=== PATIENT | female | born 1945 ===

== ENCOUNTER 2024-02-16 05:10 | Day surgery (SDC) | payer OTHER ==
[~2024-02-16] VITALS: Ht 165.1 cm; Wt 74.4 kg
[~2024-02-16 05:10] MED LIST: ADULT LOW DOSE81 M1; AMLODIPINE-OLM1 EAC2; ATORVASTATIN CA20 MG; CALTRATE 600+D1 EAC1; COZAAR100 MG; FOLIC ACID0.8 M1; LANTUS SOL100 UNIT/1; SYNJARDY 12.5-1 EACH
[2024-02-16] MEDS ORDERED: VANCOMYCIN HCL 1,000 MG VIAL IV SCH (06:00)
[2024-02-16] MEDS ORDERED: BUPIVACAINE HCL/PF 0.5% 30ML ML ONE ×2 (07:26→08:35)
[2024-02-16] MEDS ORDERED: LIDOCAINE HCL 1%/Epi 20ML VIAL IJ ONE ×3 (07:26→08:35)
[2024-02-16] MEDS ORDERED: VANCOMYCIN HCL 1,000 MG VIAL ONE (07:26)
[2024-02-16] MEDS ORDERED: HEPARIN SODIUM,PORCINE 500 UNITS/5 ML VIAL IV ONE (07:26)
[2024-02-16] MEDS ORDERED: POVIDONE-IODINE 118 ML BOTT TOP ONE ×2 (07:44→08:15)
[2024-02-16] MEDS ORDERED: BUPIVACAINE HCL 30 ML VIAL IJ ONE (08:15)
[2024-02-16] MEDS ORDERED: DOXYCYCLINE HY200 MG PO (09:04)
[2024-02-16] MEDS ORDERED: NEURONTIN300 MG PO (09:04)
== END 2024-02-16 11:50 | disposition home or self-care (01) ==
LOC: CIR.AMB 05:10
PROVIDERS: ATTEND Surgery
DX: R15.9 Full incontinence of feces (principal); I10 Essential (primary) hypertension
CPT/HCPCS: 64581; 95972; C1778